=== PATIENT | male | born 1975 | race Caucasian/White ===

== ENCOUNTER 2021-05-04 07:46 | Observation (INO) | payer OTHER ==
[~2021-05-04] VITALS: Ht 172.7 cm; Wt 77.1 kg
[2021-05-04] MEDS ORDERED: Aspir 8181 MG PO (08:49)
[2021-05-04] MEDS ORDERED: MELATONIN5 M1 PO (08:49)
[2021-05-04] MEDS ORDERED: ABILIFY MYCITE15 M2 PO (08:49)
[2021-05-04 09:19] LABS: Source, Urine Clean Catch
[2021-05-04 09:35] LABS: BASOPHILS ABSOLUTE AUTO 0.01 K/mm3 (0.00-0.23); BASOPHILS PERCENT AUTO 0 % (0-2); EOSINOPHILS ABSOLUTE AUTO 0.02 K/mm3 (0.00-0.68); EOSINOPHILS PERCENT AUTO 1 % (0-6); Hematocrit 37.7 % (37.0-53.0); Hemoglobin 12.8 g/dL (13.5-17.5); IMMATURE GRAN ABSOLUTE AUTO 0.02 K/mm3 (0.00-0.10); IMMATURE GRAN PERCENT AUTO 1 % (0-1); LYMPHOCYTES ABSOLUTE AUTO 0.71 K/mm3 (0.84-5.20); LYMPHOCYTES PERCENT AUTO 17 % (21-46); MONOCYTES ABSOLUTE AUTO 0.62 K/mm3 (0.16-1.47); MONOCYTES PERCENT AUTO 15 % (4-13); Mean Corpuscular HGB 30.8 pg (26.0-34.0); Mean Corpuscular Volume 91 fL (80-100); Mean Platelet Volume 9.5 fL (9.1-12.4); NEUTROPHILS ABSOLUTE AUTO 2.88 K/mm3 (1.96-9.15); NEUTROPHILS PERCENT AUTO 68 % (41-73); Platelet Count 180 K/mm3 (150-400); RDW Coefficient Variation 13.2 % (11.7-14.2); RDW Standard Deviation 43.1 fL (35.1-46.3); Red Blood Cell Count 4.15 M/mm3 (4.30-5.90); White Blood Cell Count 4.26 K/mm3 (4.00-11.30)
[2021-05-04 09:39] LABS: Bilirubin, Urine Neg (Neg); Blood, Urine Neg (Neg); Glucose Qualitative, Urine Neg (Neg); Ketones, Urine Neg (Neg); Leukocyte Esterase, Urine Neg (Neg); Nitrite, Urine Neg (Neg); Protein, Urine 1+ (Neg); Urobilinogen, Urine NORM (Normal)
[2021-05-04 09:42] LABS: Appearance, Urine Clear (Clear); Color, Urine Yellow (P-Yellow)
[2021-05-04 09:45] LABS: Acetaminophen, Random <2.0 ug/mL (10.0-30.0); Alanine Aminotransfer (ALT/SGP 28 U/L (12-78); Albumin, Blood 3.4 g/dL (3.4-5.0); Albumin/Globulin Ratio 1.3 (0.8-1.8); Alk Phos 80 U/L (50-136); Anion Gap 4 mmol/L (6-16); Aspartate Aminotrans (AST/SGOT 22 U/L (12-37); Bilirubin, Total 0.3 mg/dL (0.1-1.0); Blood Urea Nitrogen 10 mg/dL (8-24); Bun/Creatinine Ratio 10.4 (12.0-20.0); CO2, Blood 28 mmol/L (21-32); Calcium, Blood 8.1 mg/dL (8.5-10.1); Chloride, Blood 107 mmol/L (98-108); Creatinine, Blood 0.97 mg/dL (0.60-1.20); Ethanol (Alcohol), Blood, Med <3 mg/dL; Globulin, Blood 2.7 g/dL (2.2-4.0); Glomerular Filtration Rate >60 (60-); Glucose, Blood 132 mg/dL (70-99); Potassium, Blood 3.3 mmol/L (3.5-5.5); Salicylate 1.9 mg/dL (2.8-20.0); Sodium, Blood 139 mmol/L (136-145); Total Protein, Blood 6.1 g/dL (6.4-8.2)
[2021-05-04 10:00] LABS: U Amphetamine Screen Not Detected; U Barbituate Screen Not Detected; U Benzodiazapine Screen Not Detected; U Buprenorphine Screen Not Detected; U Cannabinoids Screen DETECTED; U Cocaine Screen Not Detected; U Methadone Screen Not Detected; U Methamphetamine Screen Not Detected; U Opiates Screen Not Detected; U Oxycodone Screen Not Detected; U Phencyclidine Screen Not Detected; U Propoxyphene Screen Not Detected
[2021-05-04 13:07] LABS: SARS-Cov-2 (COVID-19) PCR, MMC NEGATIVE (NEGATIVE)
== END 2021-05-06 00:52 ==
LOC: ER 07:46 → EOR 07:47
PROVIDERS: Physician Assistant; ADMIT Student in an Organized Health Care Education/Training Program
DX: F20.9 Schizophrenia, unspecified (principal); I50.9 Heart failure, unspecified; F17.210 Nicotine dependence, cigarettes, uncomplicated; F10.11 Alcohol abuse, in remission; F15.11 Other stimulant abuse, in remission; F12.11 Cannabis abuse, in remission; Z20.822 Contact with and (suspected) exposure to COVID-19; Z88.8 Allergy status to other drugs, medicaments and biological substances
CPT/HCPCS: 36415; 80053; 85025; 99285; A9270; G0378; G0480; U0004

== ENCOUNTER 2021-12-07 15:57 | Observation (INO) | payer OTHER ==
[~2021-12-07] VITALS: Ht 172.7 cm; Wt 77.1 kg
[~2021-12-07 15:57] MED LIST: ABILIFY MYCITE15 M2 PO; Aspir 8181 MG PO; MELATONIN5 M1 PO
[2021-12-07 17:27] LABS: BASOPHILS ABSOLUTE AUTO 0.03 K/mm3 (0.00-0.23); BASOPHILS PERCENT AUTO 1 % (0-2); EOSINOPHILS ABSOLUTE AUTO 0.11 K/mm3 (0.00-0.68); EOSINOPHILS PERCENT AUTO 2 % (0-6); Hematocrit 40.8 % (37.0-53.0); Hemoglobin 14.5 g/dL (13.5-17.5); IMMATURE GRAN ABSOLUTE AUTO 0.01 K/mm3 (0.00-0.10); IMMATURE GRAN PERCENT AUTO 0 % (0-1); LYMPHOCYTES ABSOLUTE AUTO 1.79 K/mm3 (0.84-5.20); LYMPHOCYTES PERCENT AUTO 31 % (21-46); MONOCYTES PERCENT AUTO 9 % (4-13); Mean Corpuscular HGB 31.7 pg (26.0-34.0); Mean Corpuscular HGB Conc 35.5 g/dL (31.5-36.5); Mean Corpuscular Volume 89 fL (80-100); Mean Platelet Volume 9.8 fL (9.1-12.4); NEUTROPHILS ABSOLUTE AUTO 3.31 K/mm3 (1.96-9.15); NEUTROPHILS PERCENT AUTO 58 % (41-73); Platelet Count 210 K/mm3 (150-400); RDW Coefficient Variation 12.6 % (11.7-14.2); RDW Standard Deviation 41.4 fL (35.1-46.3); Red Blood Cell Count 4.57 M/mm3 (4.30-5.90); White Blood Cell Count 5.75 K/mm3 (4.00-11.30)
[2021-12-07 17:47] LABS: Alanine Aminotransfer (ALT/SGP 88 U/L (12-78); Albumin, Blood 3.2 g/dL (3.4-5.0); Albumin/Globulin Ratio 1.1 (0.8-1.8); Alk Phos 81 U/L (50-136); Anion Gap 4 mmol/L (6-16); Aspartate Aminotrans (AST/SGOT 55 U/L (12-37); Bilirubin, Total 0.4 mg/dL (0.1-1.0); Blood Urea Nitrogen 15 mg/dL (8-24); Bun/Creatinine Ratio 17.5 (12.0-20.0); CO2, Blood 25 mmol/L (21-32); Calcium, Blood 8.1 mg/dL (8.5-10.1); Chloride, Blood 111 mmol/L (98-108); Creatinine, Blood 0.86 mg/dL (0.60-1.20); Globulin, Blood 2.8 g/dL (2.2-4.0); Glomerular Filtration Rate >60 (60-); Glucose, Blood 115 mg/dL (70-99); Potassium, Blood 4.5 mmol/L (3.5-5.5); Sodium, Blood 140 mmol/L (136-145)
[2021-12-07 22:52] LABS: Anion Gap 4 mmol/L (6-16); Blood Urea Nitrogen 12 mg/dL (8-24); Bun/Creatinine Ratio 14.9 (12.0-20.0); CO2, Blood 28 mmol/L (21-32); Chloride, Blood 112 mmol/L (98-108); Glomerular Filtration Rate >60 (60-); Glucose, Blood 92 mg/dL (70-99); Magnesium, Blood 2.2 mg/dL (1.6-2.4); Potassium, Blood 3.6 mmol/L (3.5-5.5); Sodium, Blood 144 mmol/L (136-145)
[2021-12-07 22:58] LABS: CPK Creatine Kinase 81 U/L (39-308)
--- NOTE | 2021-12-08 02:27 | NUR ---
PT CAME IN FROM THE ED DUE TO AFIB RVR IN THE 140-160'S. PT CONVERTED BACK TO NSR AFTER AMIONDARONE GIVEN PER EMAR. PT HAD POSTASSIUM ORDER IV BUT DID NOT TOLERATE WELL, GOT ORDERS FOR ORAL BUT PT BECAUSE HE DOES NOT THINK HE NEEDS IT RIGHT NOW. NOTIFIED MD OF PT IS BACK IN AFIB 120-130'S, NOTIFY MD IF PT SUSTAINS 130 OR GREATER.
--- NOTE | 2021-12-08 02:34 | NUR ---
IV POTASSIUM STOPED AT 0120. ORAL POTASSIUM OFFER BUT PT REFUSED.
--- NOTE | 2021-12-08 05:11 | NUR ---
PT SLEEPING COMFORTABLY THIS MORNING. PT IS ALERT AND COOPERATIVE BUT KEPT FALLING IN AND OUT OF SLEEP DURING CONVERSATION. PT HAD HALLUCINATION DOWN IN THE ED BUT HE STATES HE HAS NOT HAD ANY SINCE THEN. PT IS TELE- AFIB 125-130'S PT HAS BEEN JUMPING BACK AND FORTH FROM NSR TO AFIB AT 0346 PT CONVERTED TO NSR 65-70'S AND HAS SUSTAINED TILL NOW 0523. WILL CONTINUE TO MONITOR. PT BELONGINGS AND CALL LIGHT WITHIN REACH.
[2021-12-08 06:27] LABS: BASOPHILS ABSOLUTE AUTO 0.03 K/mm3 (0.00-0.23); BASOPHILS PERCENT AUTO 1 % (0-2); EOSINOPHILS ABSOLUTE AUTO 0.09 K/mm3 (0.00-0.68); EOSINOPHILS PERCENT AUTO 2 % (0-6); Hematocrit 41.9 % (37.0-53.0); Hemoglobin 14.5 g/dL (13.5-17.5); IMMATURE GRAN ABSOLUTE AUTO 0.01 K/mm3 (0.00-0.10); IMMATURE GRAN PERCENT AUTO 0 % (0-1); LYMPHOCYTES ABSOLUTE AUTO 1.65 K/mm3 (0.84-5.20); LYMPHOCYTES PERCENT AUTO 39 % (21-46); MONOCYTES ABSOLUTE AUTO 0.31 K/mm3 (0.16-1.47); MONOCYTES PERCENT AUTO 7 % (4-13); Mean Corpuscular HGB 31.4 pg (26.0-34.0); Mean Corpuscular HGB Conc 34.6 g/dL (31.5-36.5); Mean Corpuscular Volume 91 fL (80-100); Mean Platelet Volume 9.2 fL (9.1-12.4); NEUTROPHILS ABSOLUTE AUTO 2.12 K/mm3 (1.96-9.15); NEUTROPHILS PERCENT AUTO 50 % (41-73); Platelet Count 165 K/mm3 (150-400); RDW Coefficient Variation 12.9 % (11.7-14.2); RDW Standard Deviation 43.1 fL (35.1-46.3); Red Blood Cell Count 4.62 M/mm3 (4.30-5.90); White Blood Cell Count 4.21 K/mm3 (4.00-11.30)
[2021-12-08 06:55] LABS: Alanine Aminotransfer (ALT/SGP 75 U/L (12-78); Albumin, Blood 3.2 g/dL (3.4-5.0); Albumin/Globulin Ratio 1.2 (0.8-1.8); Alk Phos 70 U/L (50-136); Anion Gap 4 mmol/L (6-16); Aspartate Aminotrans (AST/SGOT 21 U/L (12-37); Bilirubin, Total 0.7 mg/dL (0.1-1.0); Blood Urea Nitrogen 9 mg/dL (8-24); Bun/Creatinine Ratio 9.1 (12.0-20.0); CO2, Blood 26 mmol/L (21-32); CPK Creatine Kinase 58 U/L (39-308); Calcium, Blood 7.9 mg/dL (8.5-10.1); Chloride, Blood 113 mmol/L (98-108); Creatinine, Blood 0.98 mg/dL (0.60-1.20); Globulin, Blood 2.6 g/dL (2.2-4.0); Glomerular Filtration Rate >60 (60-); Glucose, Blood 91 mg/dL (70-99); Potassium, Blood 3.9 mmol/L (3.5-5.5); Sodium, Blood 143 mmol/L (136-145); Total Protein, Blood 5.8 g/dL (6.4-8.2)
[2021-12-08 09:26] LABS: Source, Urine Clean Catch
[2021-12-08 09:32] LABS: Appearance, Urine Clear (Clear); Bilirubin, Urine Neg (Neg); Blood, Urine Neg (Neg); Color, Urine Yellow (P-Yellow); Glucose Qualitative, Urine Neg (Neg); Ketones, Urine Neg (Neg); Leukocyte Esterase, Urine Neg (Neg); Nitrite, Urine Neg (Neg); Protein, Urine Neg (Neg); Specific Gravity, Urine 1.015 (1.003-1.022); Urobilinogen, Urine NORM (Normal)
[2021-12-08 09:51] LABS: U Amphetamine Screen Not Detected; U Barbituate Screen Not Detected; U Benzodiazapine Screen Not Detected; U Buprenorphine Screen Not Detected; U Cannabinoids Screen DETECTED; U Cocaine Screen Not Detected; U Methadone Screen Not Detected; U Methamphetamine Screen Not Detected; U Opiates Screen Not Detected; U Oxycodone Screen Not Detected; U Phencyclidine Screen Not Detected; U Propoxyphene Screen Not Detected
[2021-12-08 15:29] LABS: CPK Creatine Kinase 60 U/L (39-308)
--- NOTE | 2021-12-08 16:30 | NUR ---
PT IN ROOM PACKING HIS GEAR, HE REMOVED HIS TELE AND SAYS HE IS LEAVING, ENCOURAGED PT TO STAY HE AT RISK FOR A CARDIAC EVENT, PT IS ADAMENT THAT HE IS GOING, CALLED DR DAS AND INFORMED HER WHILE PT FINISHED DRESSING. WHILE SPEAKING TO DR DAS PT OUT OF ROOM AND DOWN THE [address] WAY. STOPPED HIM AT DESK FOR IV REMOVAL, HE HAD ALREADY PULLED OUT. IV SITES X2 WNL. PT CONTINUED DOWN [address] AND DOWN THE ELEVATOR AND OUT.
== END 2021-12-08 16:41 | disposition left against medical advice (07) ==
LOC: ER 15:57 → MEDS 15:58
PROVIDERS: Emergency Medicine; ADMIT Internal Medicine
DX: I48.91 Unspecified atrial fibrillation (principal); F25.9 Schizoaffective disorder, unspecified; I50.9 Heart failure, unspecified; Z91.14 Patient's other noncompliance with medication regimen
CPT/HCPCS: 36415; 71045; 80048; 80053; 81003; 82550; 83735; 83880; 84484; 85025; 93005; 93010; 93306; 96365; 96375; 99285-25; A9270; G0378; J0282; J3480; J7030

== ENCOUNTER 2022-01-30 17:04 | Emergency (ER) | payer OTHER ==
[~2022-01-30] VITALS: Ht 172.7 cm; Wt 68.0 kg
== END 2022-01-30 18:21 | disposition home or self-care (01) ==
LOC: ER 17:04
DX: Z04.6 Encounter for general psychiatric examination, requested by authority (principal); F20.9 Schizophrenia, unspecified; I48.91 Unspecified atrial fibrillation; I50.9 Heart failure, unspecified; F17.200 Nicotine dependence, unspecified, uncomplicated; Z88.8 Allergy status to other drugs, medicaments and biological substances; Z79.82 Long term (current) use of aspirin; Z79.899 Other long term (current) drug therapy
CPT/HCPCS: 99282

== ENCOUNTER 2022-02-03 18:57 | Emergency (ER) | payer OTHER ==
[~2022-02-03] VITALS: Ht 172.7 cm; Wt 79.4 kg
== END 2022-02-03 19:17 | disposition home or self-care (01) ==
LOC: ER 18:57
DX: Z00.00 Encounter for general adult medical examination without abnormal findings (principal); F17.200 Nicotine dependence, unspecified, uncomplicated; Z79.899 Other long term (current) drug therapy; Z79.82 Long term (current) use of aspirin; Z88.8 Allergy status to other drugs, medicaments and biological substances
CPT/HCPCS: 99281

== ENCOUNTER 2022-02-20 11:59 | Emergency (ER) | payer OTHER ==
[~2022-02-20] VITALS: Ht 175.3 cm; Wt 67.0 kg
== END 2022-02-20 14:24 | disposition left against medical advice (07) ==
LOC: ER 11:59
DX: R04.0 Epistaxis (principal); R22.0 Localized swelling, mass and lump, head; Z79.82 Long term (current) use of aspirin; Z79.899 Other long term (current) drug therapy; Z53.29 Procedure and treatment not carried out because of patient's decision for other reasons
CPT/HCPCS: 99283

== ENCOUNTER 2022-03-01 18:22 | Observation (INO) | payer OTHER ==
[~2022-03-01] VITALS: Ht 172.7 cm; Wt 70.3 kg
[2022-03-01 18:54] LABS: BASOPHILS ABSOLUTE AUTO 0.02 K/mm3 (0.00-0.23); BASOPHILS PERCENT AUTO 0 % (0-2); EOSINOPHILS ABSOLUTE AUTO 0.07 K/mm3 (0.00-0.68); EOSINOPHILS PERCENT AUTO 1 % (0-6); Hematocrit 39.8 % (37.0-53.0); Hemoglobin 13.6 g/dL (13.5-17.5); IMMATURE GRAN ABSOLUTE AUTO 0.02 K/mm3 (0.00-0.10); IMMATURE GRAN PERCENT AUTO 0 % (0-1); LYMPHOCYTES ABSOLUTE AUTO 1.27 K/mm3 (0.84-5.20); LYMPHOCYTES PERCENT AUTO 24 % (21-46); MONOCYTES ABSOLUTE AUTO 0.49 K/mm3 (0.16-1.47); MONOCYTES PERCENT AUTO 9 % (4-13); Mean Corpuscular HGB 31.1 pg (26.0-34.0); Mean Corpuscular HGB Conc 34.2 g/dL (31.5-36.5); Mean Corpuscular Volume 91 fL (80-100); Mean Platelet Volume 9.1 fL (9.1-12.4); NEUTROPHILS ABSOLUTE AUTO 3.52 K/mm3 (1.96-9.15); NEUTROPHILS PERCENT AUTO 65 % (41-73); Platelet Count 261 K/mm3 (150-400); RDW Coefficient Variation 12.5 % (11.7-14.2); RDW Standard Deviation 41.9 fL (35.1-46.3); Red Blood Cell Count 4.37 M/mm3 (4.30-5.90); White Blood Cell Count 5.39 K/mm3 (4.00-11.30)
[2022-03-01 18:58] LABS: Source, Urine Clean Catch
[2022-03-01 19:04] LABS: Appearance, Urine Clear (Clear); Bilirubin, Urine Neg (Neg); Blood, Urine Neg (Neg); Color, Urine Yellow (P-Yellow); Glucose Qualitative, Urine Neg (Neg); Ketones, Urine Neg (Neg); Leukocyte Esterase, Urine Neg (Neg); Nitrite, Urine Neg (Neg); Protein, Urine Neg (Neg); Specific Gravity, Urine 1.025 (1.003-1.022); Urobilinogen, Urine NORM (Normal)
[2022-03-01 19:15] LABS: Salicylate 1.7 mg/dL (2.8-20.0)
[2022-03-01 19:23] LABS: U Amphetamine Screen DETECTED; U Barbituate Screen Not Detected; U Benzodiazapine Screen Not Detected; U Buprenorphine Screen Not Detected; U Cannabinoids Screen DETECTED; U Cocaine Screen Not Detected; U Methadone Screen Not Detected; U Methamphetamine Screen DETECTED; U Opiates Screen Not Detected; U Oxycodone Screen Not Detected; U Phencyclidine Screen Not Detected; U Propoxyphene Screen Not Detected
[2022-03-01 19:35] LABS: Acetaminophen, Random <2.0 ug/mL (10.0-30.0); Alanine Aminotransfer (ALT/SGP 88 U/L (12-78); Albumin, Blood 3.5 g/dL (3.4-5.0); Albumin/Globulin Ratio 1.2 (0.8-1.8); Alk Phos 101 U/L (50-136); Anion Gap 4 mmol/L (6-16); Aspartate Aminotrans (AST/SGOT 61 U/L (12-37); Bilirubin, Total 0.4 mg/dL (0.1-1.0); Blood Urea Nitrogen 12 mg/dL (8-24); CO2, Blood 27 mmol/L (21-32); Calcium, Blood 8.6 mg/dL (8.5-10.1); Chloride, Blood 109 mmol/L (98-108); Creatinine, Blood 0.71 mg/dL (0.60-1.20); Ethanol (Alcohol), Blood, Med <3 mg/dL; Globulin, Blood 2.9 g/dL (2.2-4.0); Glomerular Filtration Rate 115 (60-); Glucose, Blood 87 mg/dL (70-99); Potassium, Blood 4.1 mmol/L (3.5-5.5); Sodium, Blood 140 mmol/L (136-145); Total Protein, Blood 6.4 g/dL (6.4-8.2)
== END 2022-03-02 07:40 | disposition home or self-care (01) ==
LOC: ER 18:22 → EOR 18:23
PROVIDERS: ADMIT Student in an Organized Health Care Education/Training Program
DX: F99 Mental disorder, not otherwise specified (principal); R44.3 Hallucinations, unspecified; Z88.8 Allergy status to other drugs, medicaments and biological substances; I50.9 Heart failure, unspecified
CPT/HCPCS: 80053; 81003; 85025; 99285; G0378; G0480

== ENCOUNTER 2022-03-05 15:21 | Emergency (ER) | payer OTHER ==
[~2022-03-05] VITALS: Ht 175.3 cm; Wt 70.3 kg
== END 2022-03-05 16:15 | disposition home or self-care (01) ==
LOC: ER 15:21
DX: F12.10 Cannabis abuse, uncomplicated (principal); I50.9 Heart failure, unspecified; F20.9 Schizophrenia, unspecified; Z79.82 Long term (current) use of aspirin; Z79.899 Other long term (current) drug therapy; Z88.8 Allergy status to other drugs, medicaments and biological substances
CPT/HCPCS: 99284

== ENCOUNTER 2022-03-13 14:39 | Emergency (ER) | payer OTHER ==
[~2022-03-13] VITALS: Ht 175.3 cm; Wt 68.0 kg
[2022-03-13 15:19] LABS: BASOPHILS ABSOLUTE AUTO 0.05 K/mm3 (0.00-0.23); BASOPHILS PERCENT AUTO 1 % (0-2); EOSINOPHILS ABSOLUTE AUTO 0.09 K/mm3 (0.00-0.68); EOSINOPHILS PERCENT AUTO 1 % (0-6); Hematocrit 44.4 % (37.0-53.0); Hemoglobin 15.4 g/dL (13.5-17.5); IMMATURE GRAN ABSOLUTE AUTO 0.03 K/mm3 (0.00-0.10); IMMATURE GRAN PERCENT AUTO 0 % (0-1); LYMPHOCYTES ABSOLUTE AUTO 1.69 K/mm3 (0.84-5.20); LYMPHOCYTES PERCENT AUTO 23 % (21-46); MONOCYTES ABSOLUTE AUTO 0.66 K/mm3 (0.16-1.47); MONOCYTES PERCENT AUTO 9 % (4-13); Mean Corpuscular HGB 31.2 pg (26.0-34.0); Mean Corpuscular HGB Conc 34.7 g/dL (31.5-36.5); Mean Corpuscular Volume 90 fL (80-100); Mean Platelet Volume 8.9 fL (9.1-12.4); NEUTROPHILS ABSOLUTE AUTO 4.99 K/mm3 (1.96-9.15); NEUTROPHILS PERCENT AUTO 66 % (41-73); Platelet Count 255 K/mm3 (150-400); RDW Coefficient Variation 12.7 % (11.7-14.2); RDW Standard Deviation 41.7 fL (35.1-46.3); Red Blood Cell Count 4.94 M/mm3 (4.30-5.90); White Blood Cell Count 7.51 K/mm3 (4.00-11.30)
[2022-03-13 15:37] LABS: Ethanol (Alcohol), Blood, Med <3 mg/dL; Salicylate 3.2 mg/dL (2.8-20.0)
[2022-03-13 15:38] LABS: Acetaminophen, Random <2.0 ug/mL (10.0-30.0); Alanine Aminotransfer (ALT/SGP 120 U/L (12-78); Albumin, Blood 4.1 g/dL (3.4-5.0); Albumin/Globulin Ratio 1.2 (0.8-1.8); Alk Phos 128 U/L (50-136); Anion Gap 6 mmol/L (6-16); Aspartate Aminotrans (AST/SGOT 72 U/L (12-37); Bilirubin, Total 0.5 mg/dL (0.1-1.0); Blood Urea Nitrogen 16 mg/dL (8-24); CO2, Blood 28 mmol/L (21-32); Calcium, Blood 8.9 mg/dL (8.5-10.1); Chloride, Blood 105 mmol/L (98-108); Creatinine, Blood 0.84 mg/dL (0.60-1.20); Globulin, Blood 3.3 g/dL (2.2-4.0); Glomerular Filtration Rate 110 (60-); Glucose, Blood 148 mg/dL (70-99); Potassium, Blood 3.9 mmol/L (3.5-5.5); Sodium, Blood 139 mmol/L (136-145); Total Protein, Blood 7.4 g/dL (6.4-8.2)
[2022-03-13] MEDS ORDERED: OLAN10 PO (16:46)
== END 2022-03-13 18:31 | disposition home or self-care (01) ==
LOC: ER 14:39
PROVIDERS: Physician Assistant
DX: F20.9 Schizophrenia, unspecified (principal); Z91.128 Patient's intentional underdosing of medication regimen for other reason; I48.91 Unspecified atrial fibrillation; F17.200 Nicotine dependence, unspecified, uncomplicated; I50.9 Heart failure, unspecified; Z79.899 Other long term (current) drug therapy; Z79.82 Long term (current) use of aspirin
CPT/HCPCS: 36415; 80053; 85025; A9270; G0480